=== PATIENT | female | born 1985 | race Caucasian/White ===

== ENCOUNTER 2018-08-26 11:25 | Emergency (ER) | payer OTHER ==
--- OUTSIDE RECORDS SUMMARY | 2018-08-26 11:30 | XMS REPORT | Continuity of Care Document ---
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 Body Temperature 98.3 F Weight 199.00 lb w/shoes 08/22/2016 1:52pm BP Systolic 110 mmHg BP Diastolic 60 mmHg Weight 207.00 lb with sneakers 07/21/2016 1:00pm BP Systolic 124 mmHg BP Diastolic 62 mmHg Weight 213.00 lb 06/04/2016 3:19pm BP Systolic 110 mmHg BP Diastolic 70 mmHg Weight 212.00 lb with sneakers 05/07/2016 8:59am BP Systolic 110 mmHg BP Diastolic 78 mmHg Weight 216.00 lb with sneakers 04/09/2016 11:27am BP Systolic 110 mmHg BP Diastolic 62 mmHg Height 68.25 inches 5'8.25" Weight 222.00 lb BMI (Body Mass Index) 33.5 kg/m2 03/12/2016 11:39am BP Systolic 110 mmHg BP Diastolic 60 mmHg Weight 216.00 lb 02/11/2016 1:32pm BP Systolic 120 mmHg BP Diastolic 60 mmHg Weight 224.00 lb 01/28/2016 4:23pm BP Systolic 128 mmHg BP Diastolic 76 mmHg 01/21/2016 4:45pm BP Systolic 142 mmHg BP Diastolic 70 mmHg Weight 244.00 lb 01/01/2016 2:06pm BP Systolic 122 mmHg BP Diastolic 80 mmHg Weight 237.00 lb 37 wks 12/07/2015 11:28am BP Systolic 126 mmHg BP Diastolic 70 mmHg Weight 233.00 lb 11/09/2015 9:35am BP Systolic 128 mmHg BP Diastolic 60 mmHg 10/12/2015 1:24pm BP Systolic 114 mmHg BP Diastolic 60 mmHg Height 68 inches 5'8" w/shoes Weight 214.00 lb w/shoes BMI (Body Mass Index) 32.5 kg/m2 09/25/2015 1:23pm BP Systolic 136 mmHg BP Diastolic 60 mmHg 08/28/2015 1:00pm BP Systolic 136 mmHg BP Diastolic 60 mmHg Weight 206.00 lb 07/30/2015 11:28am BP Systolic 112 mmHg BP Diastolic 60 mmHg Weight 206.00 lb with sneakers 07/16/2015 1:31pm BP Systolic 118 mmHg BP Diastolic 50 mmHg 06/18/2015 10:34am BP Systolic 120 mmHg BP Diastolic 72 mmHg Weight 199.00 lb 06/04/2015 1:40pm BP Systolic 120 mmHg BP Diastolic 70 mmHg 05/25/2015 10:38am BP Systolic 118 mmHg BP Diastolic 64 mmHg 05/18/2015 1:30pm BP Systolic 126 mmHg BP Diastolic 72 mmHg Weight 201.00 lb w/shoes 05/02/2015 1:11pm BP Systolic 122 mmHg BP Diastolic 58 mmHg 04/03/2015 4:08pm BP Systolic 102 mmHg BP Diastolic 62 mmHg Height 67.5 inches 5'7.50" with sneakers Weight 206.00 lb with sneakers BMI (Body Mass Index) 31.8 kg/m2 03/13/2015 1:09pm BP Systolic 120 mmHg BP Diastolic 65 mmHg Weight 200.00 lb 02/26/2015 9:38am BP Systolic 108 mmHg BP Diastolic 66 mmHg 02/21/2015 3:16pm BP Systolic 98 mmHg BP Diastolic 54 mmHg Body Temperature 97.9 F Weight 204.00 lb shoes on 01/29/2015 5:20pm BP Systolic 100 mmHg BP Diastolic 70 mmHg Body Temperature 97.7 F Weight 201.00 lb 01/02/2015 9:38am BP Systolic 106 mmHg BP Diastolic 64 mmHg Weight 206.00 lb 12/05/2014 10:20am Weight 206.00 lb shoes on 11/15/2014 3:59pm Body Temperature 97.9 F Weight 216.00 lb w/shoes 11/07/2014 12:21pm BP Systolic 114 mmHg BP Diastolic 72 mmHg Weight 214.00 lb w/shoes 10/10/2014 12:57pm BP Systolic 118 mmHg BP Diastolic 64 mmHg Height 67 inches 5'7" Weight 216.00 lb BMI (Body Mass Index) 33.8 kg/m2 09/12/2014 9:03am BP Systolic 116 mmHg BP Diastolic 60 mmHg Weight 212.00 lb 08/15/2014 9:40am BP Systolic 106 mmHg BP Diastolic 60 mmHg Weight 208.00 lb 07/18/2014 9:46am BP Systolic 110 mmHg BP Diastolic 68 mmHg Weight 206.00 lb 06/20/2014 1:59pm BP Systolic 100 mmHg BP Diastolic 64 mmHg Weight 198.00 lb 06/06/2014 2:47pm BP Systolic 108 mmHg BP Diastolic 64 mmHg 05/23/2014 1:02pm BP Systolic 114 mmHg BP Diastolic 58 mmHg Weight 193.00 lb 05/08/2014 9:51am BP Systolic 98 mmHg BP Diastolic 58 mmHg Weight 197.00 lb shoes on 04/24/2014 2:57pm BP Systolic 100 mmHg BP Diastolic 60 mmHg Weight 192.00 lb 04/17/2014 3:42pm BP Systolic 90 mmHg BP Diastolic 50 mmHg Heart Rate 76 /min reg Respiratory Rate 12 /min not laboured Height 67.75 inches 5'7.75" shoes on Weight 195.00 lb shoes on BMI (Body Mass Index) 29.9 kg/m2 Last Menstrual Period [id number] Results Test Date Facility Test Result H/L Range Note Urine Drug Screen Inhouse 06/26/2018 In House [facility] Cocaine + Ua Opiates - Ua Amphetamines - Urine Methanphetamines - Urine Benzodiazepines QN [place] - Urine Oxycodone QL - Laboratory test 05/14/2018 [facility]. Rapid Strep Negative Negative 1, 2 finding LABORATORY A Antigen [phone] Throat Strep Screen NO BETA STREPTOC <SEE NOTE> 3 Urine Drug Screen Inhouse 01/19/2018 In House Ua Cocaine - Ua Opiates - Ua Amphetamines - Urine Methanphetamines - Urine Benzodiazepines QN [place] - Urine Oxycodone QL - Urine Drug Screen Inhouse 09/04/2017 In House Ua Cocaine - Ua Opiates - Ua Amphetamines - Urine Methanphetamines - Urine Benzodiazepines QN [place] - Urine Oxycodone QL - Laboratory test 09/04/2017 [facility] Cytology SEE RESULT 4 finding [phone] BELOW GC/Chlamydia 09/04/2017 [facility] Chlamydia Negative Negative Amplified Rna [phone] trachomatis Rna Neisseria gonorrhoeae (GC) Rna Negative Negative Lipid Profile (Trig/Chol/HDL) 09/04/2017 [facility] Triglycerides 77 mg /dL 5 [phone] Cholesterol 177 mg/dL 6 HDL Cholesterol 44.0 mg/dL 7 LDL Cholesterol 118 mg/dL 8 Ua Inhouse 09/04/2017 In House Ua Specific Fisher 1.020 Ua PH 6.5 Laboratory test 07/14/2017 [facility] Stool For SEE RESULT 9, 10 finding [phone] Blood BELOW Helico Pylori Antigen- Stool Negative Negative 11 Laboratory test 07/08/2017 [facility] Amylase 43 U/L N 29-103 12 finding [phone] CBC Auto Diff 07/08/2017 [facility] White Blood 6.7 10^3/uL N 3.5- 10.8 [phone] Count Red Blood Count 4.38 10^6/uL N 4.0-5.4 Hemoglobin 12.6 g/dL N 12.0-16.0 Hematocrit 38 % N 35-47 Mean Corpuscular Volume 87 fL N 80-97 Mean Corpuscular Hemoglobin 29 pg N 27-31 Mean Corpuscular HGB Conc 33 g/dL N 31-36 Red Cell Distribution Width 14 % N 10.5-15 Platelet Count 232 10^3/uL N 150-450 Mean Platelet Volume 9 um3 N 7.4-10.4 Abs Neutrophils 3.2 10^3/uL N 1.5-7.7 Abs Lymphocytes 2.3 10^3/uL N 1.0-4.8 Abs Monocytes 0.7 10^3/uL N 0-0.8 Abs Eosinophils 0.4 10^3/uL N 0-0.6 Abs Basophils 0 10^3/uL N 0-0.2 Abs Nucleated RBC 0 10^3/uL Granulocyte % 47.9 % N 38-83 Lymphocyte % 34.8 % N 25-47 Monocyte % 11.2 % High 1-9 Eosinophil % 5.6 % N 0-6 Basophil % 0.5 % N 0-2 Nucleated Red Blood Cells % 0 Xray 07/08/2017 [facility] X-Ray, Lumbosacral <pending> Spine, Ap & Lat Minimum 4 Views Comp Metabolic 07/08/2017 [facility] Sodium 134 mmol/L N 133-145 Panel [phone] Potassium 4.2 mmol/L N 3.5-5.0 Chloride 106 mmol/L N 101-111 Co2 Carbon Dioxide 24 mmol/L N 22-32 Anion Gap 4 mmol/L N 2-11 Glucose 94 mg/dL N 70-100 Blood Urea Nitrogen 18 mg/dL N 6-24 Creatinine 0.63 mg/dL N 0.51-0.95 BUN/Creatinine Ratio 28.6 High 8-20 Calcium 9.2 mg/dL N 8.6-10.3 Total Protein 6.8 g/dL N 6.4-8.9 Albumin 4.1 g/dL N 3.2-5.2 Globulin 2.7 g/dL N 2-4 Albumin/Globulin Ratio 1.5 N 1-3 Total Bilirubin 0.20 mg/dL N 0.2-1.0 Alkaline Phosphatase 62 U/L N 34-104 Alt 13 U/L N 7-52 Ast 14 U/L N 13-39 Egfr Non- 110.2 >60 Egfr 141.7 >60 13 Laboratory test 07/08/2017 [facility] Lipase 20 U/L N 11.0-82.0 finding [phone] Laboratory test 07/07/2017 In House Hemoglobin A1c 5.3 finding Ua Inhouse 07/07/2017 In House Ua Glucose - 14 Ua Bilirubin mod Ua Ketones - Ua Specific Fisher 1.015 Ua Blood - Ua PH 6.0 Ua Protein - Ua Urobilinogen - Ua Nitrite - Ua Leukocytes - Urine Drug Screen Inhouse 07/03/2017 In House Ua Cocaine - Ua Opiates - Ua Amphetamines - Urine Methanphetamines - Urine Benzodiazepines QN [place] - Urine Oxycodone QL - Urine Drug Screen Inhouse 06/17/2017 In House Ua Cocaine - Ua Opiates - Ua Amphetamines - Urine Methanphetamines - Urine Benzodiazepines QN [place] - Urine Oxycodone QL - Urine Drug Screen Inhouse 06/11/2017 In House Ua Cocaine - Ua Opiates - Ua Amphetamines - Urine Methanphetamines - Urine Benzodiazepines QN [place] - Urine Oxycodone QL - Urine Drug Screen Inhouse 06/03/2017 In House Ua Cocaine - Ua Opiates - Ua Amphetamines - Urine Methanphetamines - Urine Benzodiazepines QN [place] - Urine Oxycodone QL - Urine Drug Screen Inhouse 05/11/2017 In House Ua Cocaine - Ua Opiates - Ua Amphetamines - Urine Methanphetamines - Urine Benzodiazepines QN [place] - Urine Oxycodone QL - Urine Drug Screen Inhouse 04/22/2017 In House Ua Cocaine - Ua Opiates - Ua Amphetamines - Urine Methanphetamines - Urine Benzodiazepines QN [place] - Urine Oxycodone QL - Urine Drug Screen Inhouse 03/24/2017 In House Ua Cocaine - Ua Opiates - Ua Amphetamines - Urine Methanphetamines - Urine Benzodiazepines QN [place] - Urine Oxycodone QL - Urine Drug Screen Inhouse 12/15/2016 In House Ua Cocaine - Ua Opiates - Ua Amphetamines - Urine Methanphetamines - Urine Benzodiazepines QN [place] - Urine Oxycodone QL - Laboratory test 10/15/2016 [facility] Lyme Disease Negative N Negative 15 finding [phone] Serology Urine Drug Screen 09/30/2016 In House Ua Cocaine - Inhouse Ua Opiates - Ua Amphetamines - Urine Methanphetamines - Urine Benzodiazepines QN [place] - Urine Oxycodone QL - Urine Drug Screen Inhouse 09/19/2016 In House Ua Cocaine - Ua Opiates - Ua Amphetamines - Urine Methanphetamines - Urine Benzodiazepines QN [place] - Urine Oxycodone QL - Laboratory test 02/03/2016 [facility] Rupture of Positive N 16 finding [phone] Membranes Urine Drug SCR 02/01/2016 [facility] Amphetamine Ur None Detected N None ED & Pain [phone] Screen Detect Clinic Barbiturates Urine Screen None Detected N None Detect Benzodiazepine Urine Screen None Detected N None Detect Urine Cannabinoids Screen None Detected N None Detect Urine Cocaine Screen None Detected N None Detect Urine Opiates Screen None Detected N None Detect Urine Phencyclidine Screen None Detected N None Detect 17 Urine Drug Screen Inhouse 10/12/2015 In House Ua Cocaine - Ua Opiates - Ua Amphetamines - Urine Methanphetamines - Urine Benzodiazepines QN [place] - Urine Oxycodone QL - Laboratory test 02/12/2015 [facility] Surgical Pathology SEE RESULT 18 finding [phone] BELOW Laboratory test 02/12/2015 [facility] Clotest SEE RESULT 19 finding [phone] BELOW Urine Drug Screen 12/05/2014 In House Ua Cocaine - Inhouse Ua Opiates - Ua Amphetamines - Urine Methanphetamines - Urine Benzodiazepines QN [place] - Urine Oxycodone QL - Urine Drug Screen Inhouse 11/07/2014 In House Ua Cocaine - Ua Opiates - Ua Amphetamines - Urine Methanphetamines - Urine Benzodiazepines QN [place] - Urine Oxycodone QL - Laboratory test finding 09/12/2014 In House Test Urine negative Urine Drug Screen Inhouse 09/12/2014 In House Ua Cocaine - Ua Opiates - Ua Amphetamines - Urine Methanphetamines - Urine Benzodiazepines QN [place] - Urine Oxycodone QL - Urine Drug Screen Inhouse 06/06/2014 In House Urine THC Screen tnp Ua Cocaine - Ua Opiates - Ua Amphetamines - Urine Methanephrine Random tnp Urine Phenyclidine GC/MS tnp Urine Mdma QN Random tnp Ua Barbiturates tnp Urine Benzodiazepines QN [place] - Ua Methadone tnp Urine Tricyclc Antidepress RND tnp Urine Oxycodone QL - Urine Drug Screen Inhouse 05/08/2014 In House Urine THC Screen + Ua Cocaine - Ua Opiates - Ua Amphetamines - Urine Methanephrine Random - Urine Phenyclidine GC/MS - Urine Mdma QN Random - Ua Barbiturates - Urine Benzodiazepines QN [place] - Ua Methadone - Urine Tricyclc Antidepress RND - Urine Oxycodone QL - Vitamin D, 25 04/24/2014 [facility] 25-Hydroxy Vitamin D2 <4.0 ng/mL N Hydroxy [phone] 25-Hydroxy Vitamin D3 48 ng/mL N 25-Hydroxy Vitamin D Total 48 ng/mL N 20 Urine Drug Screen Inhouse 04/17/2014 In House Urine THC Screen + Ua Cocaine - Ua Opiates - Ua Amphetamines - Urine Methanephrine Random - Urine Phenyclidine GC/MS - Urine Mdma QN Random - Ua Barbiturates - Urine Benzodiazepines QN [place] - Ua Methadone - Urine Tricyclc Antidepress RND - Urine Oxycodone QL - Human Papilloma 06/09/2013 [facility] Human Papillomavirus See Comment 21 [phone] Source Human Papillomavirus High Risk Negative Negative 22 Cytology 06/07/2013 [facility] Cy RUN DATE: 23 [phone] SEE NOTE> GC/Chlamydia 06/07/2013 [facility] GC/Chlamydia (SEE NOTE) 24 Amplified Rna [phone] Rna GC/Chlamydia 05/18/2013 [facility] GC/Chlamydia (SEE NOTE) 25 Amplified Rna [phone] Rna CBC Auto Diff 04/13/2013 [facility] White Blood 5.9 10^3/uL 4.8- 10.8 [phone] Count Red Blood Count 3.81 10^6/uL Low 4.0-5.4 Hemoglobin 10.6 g/dL Low 12.0-16.0 Hematocrit 33 % Low 35-47 Mean Corpuscular Volume 87 fL 80-97 Mean Corpuscular Hemoglobin 28 pg 27-31 Mean Corpuscular HGB Conc 32 g/dL 31-36 Red Cell Distribution Width 15 % 10.5-15 Platelet Count 267 10^3/uL 150-450 Mean Platelet Volume 8 um3 7.4-10.4 Abs Neutrophils 3.2 10^3/uL 1.5-7.7 Abs Lymphocytes 1.8 10^3/uL 1.0-4.8 Abs Monocytes 0.7 10^3/uL 0-0.8 Abs Eosinophils 0.2 10^3/uL 0-0.6 Abs Basophils 0 10^3/uL 0-0.2 Abs Nucleated RBC 0 10^3/uL Granulocyte % 53.4 % 38-83 Lymphocyte % 30.4 % 25-47 Monocyte % 12.6 % High 1-9 Eosinophil % 3.3 % 0-6 Basophil % 0.3 % 0-2 Nucleated Red Blood Cells % 0 Iron & Iron Binding Capacity 04/13/2013 [facility] Iron 98 g/dL 28 -170 [phone] Unsaturated Iron Binding 149 g/dL Total Iron Binding Capacity 247 g/dL Low 250-450 % Iron Saturation 40 % 15-55 Laboratory test 04/13/2013 [facility] Ferritin 19 ng/mL 11-307 finding [phone] RPR 04/13/2013 [facility] Syphilis IgG Nonreactive Nonreactive 26 [phone] RPR TNP Nonreactive RPR Titer TNP Pediatric/Maternal NO HIV 1/2 AB 04/13/2013 [facility] HIV 1 2 Nonreactive Nonreactive 27 Evaluation [phone] Antibody CBC Auto Diff 03/16/2013 [facility] White Blood 5.5 10^3/uL 4.8- 10.8 [phone] Count Red Blood Count 3.79 10^6/uL Low 4.0-5.4 Hemoglobin 10.6 g/dL Low 12.0-16.0 Hematocrit 33 % Low 35-47 Mean Corpuscular Volume 87 fL 80-97 Mean Corpuscular Hemoglobin 28 pg 27-31 Mean Corpuscular HGB Conc 32 g/dL 31-36 Red Cell Distribution Width 15 % 10.5-15 Platelet Count 225 10^3/uL 150-450 Mean Platelet Volume 8 um3 7.4-10.4 Abs Neutrophils 3.4 10^3/uL 1.5-7.7 Abs Lymphocytes 1.2 10^3/uL 1.0-4.8 Abs Monocytes 0.8 10^3/uL 0-0.8 Abs Eosinophils 0.1 10^3/uL 0-0.6 Abs Basophils 0 10^3/uL 0-0.2 Abs Nucleated RBC 0 10^3/uL Granulocyte % 61.4 % 38-83 Lymphocyte % 22.0 % Low 25-47 Monocyte % 14.0 % High 1-9 Eosinophil % 2.2 % 0-6 Basophil % 0.4 % 0-2 Nucleated Red Blood Cells % 0 Urinalysis 03/16/2013 [facility] Urine Color Corazon [phone] Urine Appearance Clear Urine Specific Fisher 1.017 1.010-1.030 Urine Esterase Negative Negative Urine Nitrate Negative Negative Urine Urobilinogen Negative E.U./dL Negative Urine Protein Negative mg/dL Negative Urine pH 5.5 5-9 Urine Blood Negative Negative Urine Ketones Negative mg/dL Negative Urine Bilirubin Negative Negative Urine Glucose Negative mg/dL Negative Laboratory test 03/16/2013 [facility] Hepatitis B Nonreactive Nonreactive finding [phone] Surface Antigen Hepatitis C Antibody Nonreactive Nonreactive Comp Metabolic Panel 03/16/2013 [facility] Sodium 141 mmol/L 133- 145 [phone] Potassium 3.8 mmol/L 3.5-5.0 Chloride 109 mmol/L 101-111 Co2 Carbon Dioxide 26.0 mmol/L 22-32 Anion Gap 6.0 mmol/L 2-11 Glucose 94 mg/dL 70-100 Blood Urea Nitrogen 10 mg/dL 6-24 Creatinine 0.80 mg/dL 0.50-1.40 BUN/Creatinine Ratio 12.5 8-20 Calcium 8.9 mg/dL 8.1-9.9 Total Protein 6.8 g/dL 6.2-8.1 Albumin 3.5 g/dL Low 3.6-5.4 Globulin 3.3 g/dL 2-4 Albumin/Globulin Ratio 1.1 1-3 Total Bilirubin 0.3 mg/dL Low 0.4-1.5 Alkaline Phosphatase 60 U/L 30-110 Alt 35 U/L 14-54 Ast 36 U/L 12-42 Egfr Non- 86.7 >60 Egfr 111.5 >60 28 Laboratory test 03/16/2013 [facility] TSH (Thyroid 2.27 miu/mL 0.34- 5.60 finding [phone] Stimulating Horm) Quantiferon Gold 03/16/2013 [facility] M tuberculosis by Negative TB [phone] Quantiferon Tuberculosis Antigen Value 0.33 IU/mL 29 1 COUGH, SORE THROAT 2 Infection due to Strep A cannot be ruled-out because the antigen present in the sample may be below the detection limit of the test. Culture confirmation of negative result is in progress Method: BD Veritor Chromatographic immunoassay 3 NO BETA STREPTOCOCCI ISOLATED 4 SEE RESULT BELOW Name: JOVITA DANIELS : [address]: Bailey HOUSTON Acct: [id number] Unit: [id number] AGE: 32 Location: [facility] Re09/04/17 SEX: F Status: REG REF SPEC: [id number] NICHOLE: 09/04/17-1230 [facility] [address]: Bailey HOUSTON REQ: [id number] RECD: 09/04/17 STATUS: SOUT _ ORDERED: TP IMAGE ANAL, HPV/Thin Prep COMMENTS: [id number] Negative for Intraepithelial lesion or Malignancy A. Ectocervical/Endocervical Specimen Adequacy: Satisfactory of evaluation Transformation zone component identified Patient Information: HPV: High risk HPV RNA testing regardless of pap results. Actual Specimen Date: 09/04/17 Last Menstrual Date: 08/21/17 ?: N Post Menopausal?: N Hysterectomy?: N Date Time Test Result Flag (u) Normal Range 09/04/17 1230 @ HPV RNA Negative Negative @ @ The high-risk HPV types detected by the assay include: 16, @ 18, 31, 33, 35, 39, 45, 51, 52, 56, 58, 59, 66, and 68. Signed (signature on file) ROSALIA Castro([facility]) 09/07 1552 This Pap test was evaluated with the assistance of the [facility] Shift[employer] Test Imaging System. Due to cytologic findings at the labor relations consultant microscope, comprehensive manual rescreening by a Fishing Lure Assembler may be required. The Pap Smear is a screening test designed to aid in the detection of premalignant and malignant conditions of the uterine cervix. It is not a diagnostic procedure and should not be used as the sole means of detecting cervical cancer. Both false- positive and false- negative reports do occur. Depending on your risk status, a Pap smear should be obtained and evaluated every 1-3 years. END OF REPORT DEPARTMENT OF PATHOLOGY, [address] [place] [address] Stuart Taylor M.D. Director [facility] # [id number] 5 Desirable: <150 Borderline High: 150-199 High: 200-499 Very High: >500 6 Desirable: <200 Borderline High: 200-239 High: >239 7 Low: <40 Desirable: 40-60 High: >60 8 Desirable: <100 Near Optimal: 100-129 Borderline High: 130-159 High: 160-189 Very High: >189 9 [id number] 10 SEE RESULT BELOW Name: JOVITA DANIELS : [address]: Bailey HOUSTON Acct: [id number] Unit: [id number] AGE: 32 Location: [facility] Re07/14/17 SEX: F Status: REG REF SPEC: [id number] NICHOLE: 07/14/17-[address]: Bailey HOUSTON REQ: [id number] RECD: 07/14/17 STATUS: COMP _ SOURCE: STOOL SPDESC: ORDERED: Occult Bl, Diag, Fecal Lactoferr COMMENTS: [id number] Procedure Result Reported Site Stool Specimen Description Final 07/14/17- 2047 ML Stool Color Brown Stool Form Nonformed Stool Consistency Pasty Fecal Lactoferrin (Stool WBC) Final 07/14/17- 2047 ML Fecal Lactoferrin Negative by Immunoassay TEST LIMITATIONS: Assay detects elevated levels of lactoferrin released from fecal leukocytes as a marker of intestinal inflammation. The test may not be appropriate in immunocompromised persons. Fecal samples from breast fed infants should not be used with this assay. Stool Occult Blood (1) Final 07/14/17- 2047 ML Stool Occult Blood Negative Collection Date (1) 07/14/17 * ML - [facility] ([facility]) . END OF REPORT * ML=Testing performed at Main Lab DEPARTMENT OF PATHOLOGY, [address] [place] [address] Stuart Taylor M.D. Director [facility] # [id number] 11 Test Performed by: [address] [id number] 12 Per [facility] lab site, no stool testing was done on pt. SL 13 Because ethnic data is not always readily available, this report includes an eGFR for both -Americans and non- Americans. The National Kidney Disease Education Program (NKDEP) does not endorse the use of the MDRD equation for patients that are not between the ages of 18 and 70, are , have extremes of body size, muscle mass, or nutritional status, or are non- or non-. According to the National Kidney Foundation, irrespective of diagnosis, the stage of the disease is based on the level of kidney function: Stage Description GFR(mL/min/1.73 m(2)) 1 Kidney damage with normal or decreased GFR 90 2 Kidney damage with mild decrease in GFR 60-89 3 Moderate decrease in GFR 30-59 4 Severe decrease in GFR 15-29 5 Kidney failure <15 (or dialysis) 14 void, yellow 15 Serologic response to B. burgdorferi infection is not detected, but cannot rule out early infection during which low or undetectable antibody levels to B. burgdorferi may be present. If clinically indicated, a new serum specimen should be submitted in 7-14 days. Test Performed by: [facility] - [address] [address] 16 A POSITIVE result indicates probable membrane rupture. 17 The urine specimen was tested at the listed cutoffs: Drug class test level (ng/mL) Amphetamines 500 Barbiturates 200 Benzodiazepine metabolites 200 Cocaine metabolites 150 Cannabinoids 50 Opiates 300 Pcp 25 Specimen was received without chain of custody. Results should be used for medical purposes only. 18 SEE RESULT BELOW Name: TRESA DANIELSJOVITA Casi : [address]: Martin Burgos MD Acct: [id number] Unit: [id number] AGE: 29 Location: ENDO Re/10/15 SEX: F Status: REG REF SPEC: [id number] NICHOLE: 02/12/15 [facility] [address]: Martin Burgos MD REQ: [id number] RECD: 02/12/15 STATUS: ANDREI ARREGUIN DR: Wilmer Martinez MD _ ORDERED: LEVEL IV FINAL DIAGNOSIS Small bowel, duodenum, biopsy: -- Small bowel mucosa with normal villous architecture and no significant pathologic abnormality. -- No infectious agents or viral pathologic changes identified. CLINICAL HISTORY No additional information provided POST-OPERATIVE DIAGNOSIS Esophagus - normal; stomach - normal, biopsied; duodenum - normal, biopsied GROSS DESCRIPTION The specimen is received in formalin labeled, Duodenum Biopsies, and consists of a 1.0 x 0.2 x 0.1 cm bryant-pink irregular soft tissue fragment, which is submitted entirely in one cassette. Signed (signature on file) Stuart Taylor MD [id number] END OF REPORT * ML=Testing performed at Main Lab DEPARTMENT OF PATHOLOGY, [address] [place] [address] Stuart Taylor M.D. Director [facility] # [id number] 19 SEE RESULT BELOW Name: JOVITA DANIELS : [address]: Martin Burgos MD Acct: [id number] Unit: [id number] AGE: 29 Location: ENDO Re02/12/15 SEX: F Status: REG REF SPEC: [id number] NICHOLE: 02/12/15-112[address] [facility] [address]: Martin Burgos MD REQ: [id number] RECD: 02/12/15 STATUS: COMP VERONICAHR DR: Wilmer Martinez MD _ SOURCE: GAS ANTRUM SPDESC: ORDERED: Clotest Procedure Result Verified Site Clotest Final 02/13/15- 732 ML Clotest Negative * ML - [facility] ([facility]) . END OF REPORT * ML=Testing performed at Main Lab DEPARTMENT OF PATHOLOGY, [facility] [place], [place] [address] Stuart Taylor M.D. Director [facility] # [id number] 20 REFERENCE VALUE 25-HYDROXY D TOTAL (D2+D3) Optimum levels in the healthy population are 20-50, patients with bone disease may benefit from higher levels within this range. Test Performed by: [facility] [place] [address] Aerial Applicator Pilot: Thai Miranda M.D. 21 RESULT: Ectocervical/Endocervical 22 For types 16, 18, 31, 33, 35, 39, 45, 51, 52, 56, 58, 59 and 68. Test Performed by: [facility] [place] [address] Aerial Applicator Pilot: Cirilo Carbajal III, M.D. 23 RUN DATE: 06/09/13 [facility] LAB LIVE PAGE 1 RUN TIME: 9576 [facility] [facility] [place], [place] [address] Specimen Inquiry Name: JOVITA DANIELS : [address]: Bailey HOUSTON Acct: [id number] Unit: [id number] AGE: 28 Location: [facility] Re06/07/13 SEX: F Status: REG REF SPEC: [id number] NICHOLE: 06/07/13-[address]: Bailey HOUSTON REQ: [id number] RECD: 06/08/13-1699 STATUS: ANDREI ARREGUIN DR: Yahaira López-Tbrg _ ORDERED: IMAGE ANALYSIS, HPV/Thin Prep FINAL DIAGNOSIS Negative for Intraepithelial lesion or Malignancy Shift in davina suggestive of bacterial vaginosis COMMENTS: Specimen sent to [facility] in [place], [place] on 06/09/13 by ANIKA at 1507. Results will be reported separately. A. Ectocervical/Endocervical Specimen Adequacy: Satisfactory of evaluation Transformation zone component identified Patient Information: HPV: High risk HPV DNA testing regardless of pap results. Actual Specimen Date: 06/07/13 Other Pertinent History: No History Given Signed (signature on file) ROSALIA Mendoza (ASCP) 06/09 1507 This Pap test was evaluated with the assistance of the ThinPrep Test Imaging System. Due to cytologic findings at the labor relations consultant microscope, comprehensive manual rescreening by a Fishing Lure Assembler may be required. The Pap Smear is a screening test designed to aid in the detection of premalignant and malignant conditions of the uterine cervix. It is not a diagnostic procedure and should not be used as the sole means of detecting cervical cancer. Both false- positive and false- negative reports do occur. Depending on your risk status, a Pap smear shoudl be obtained and evaluated every 1-3 years. END OF REPORT * ML=Testing performed at Main Lab DEPARTMENT OF PATHOLOGY, [facility] [place], [place] [address] Stuart Taylor M.D. Director [facility] Permit #[id number] RUN DATE: 06/10/13 [facility] LAB LIVE PAGE 1 RUN TIME: 1241 [facility] [place], [place] [address] Specimen Inquiry Name: JOVITA DANIELS : [address]: Bailey HOUSTON Acct: [id number] Unit: [id number] AGE: 28 Location: [facility] Re06/07/13 SEX: F Status: REG REF SPEC: [id number] NICHOLE: 06/07/13 [facility] DR: Bailey HOUSTON REQ: [id number] RECD: 06/08/13 STATUS: FAVIO ARREGUIN DR: Troup Adrian [facility] _ SOURCE: THIN SPDESC: ORDERED: GC/Chlam RNA COMMENTS: Procedure Result Verified Site Chlamydia Trachomatis RNA Final 06/10/13- 1240 ML NEGATIVE for Chlamydia trachomatis rRNA GC (N. gonorrhoeae) RNA Final 06/10/13- 1240 ML NEGATIVE for Neisseria gonorrhoeae rRNA A negative result does not preclude the presence of a C. trachomatis or N. gonorrhoeae infection because results are dependent on adequate specimen collection, absence of inhibitors, and sufficient rRNA to be detected. Test results may be affected by improper specimen collection, improper storage, technical error, or specimen mixup. Limitations of the Procedure: The Aptima Combo 2 Assay is not intended for the evaluation of suspected sexual abuse or for other medico-legal indications. For those patients for whom a false positive result may have adverse psychosocial impact, the CDC recommends retesting by a method using an alternate technology. Therapeutic failure or success cannot be determined with the Aptima Combo 2 Assay since nucleic acid may persist following appropriate antimicrobial therapy. Results from the Aptima Combo 2 Assay should be interpreted in conjunction with other laboratory and clinical data available to the clinican. CONTINUED ON NEXT PAGE * ML=Testing performed at [facility] Lab DEPARTMENT OF PATHOLOGY, [address] [place] [address] Stuart Taylor M.D. Director [facility] Permit #[id number] RUN DATE: 06/10/13 [facility] LAB LIVE PAGE 2 RUN TIME: [address] [place] [id number] Specimen Inquiry Patient: JOVITA DANIELS [id number] (Continued) Specimen: [id number] Collected: 06/07/13 Received: 06/08/13-1214 (Continued) Procedure Result Verified Site GC (N. gonorrhoeae) RNA Final (continued) 06/10/13- 1240 Performance characteristics for detecting C. trachomatis and N. gonorrhoeae are derived from high prevalence populations. Positive results in low prevalence populations should be interpreted carefully with the understanding that the likelihood of a false positive may be higher than a true positive. END OF REPORT * ML=Testing performed at Main Lab DEPARTMENT OF PATHOLOGY, [facility] [place], [place] [address] Stuart Taylor M.D. Director [facility] Permit #[id number] RUN DATE: 05/20/13 [facility] LAB LIVE PAGE 1 RUN TIME: 1335 [facility] [place], [place] [address] Specimen Inquiry Name: JOVITA DANIELS : [address]: Bailey HOUSTON Acct: [id number] Unit: [id number] AGE: 28 Location: [facility] Re05/18/13 SEX: F Status: REG REF SPEC: [id number] NICHOLE: 05/18/13-110[address] [facility] [address]: Bailey HOUSTON REQ: [id number] RECD: 05/18/13 STATUS: FAVIO ARREGUIN DR: Y[facility] _ SOURCE: URINE SPDESC: ORDERED: GC/Chlam RNA Procedure Result Verified Site Chlamydia Trachomatis RNA Final 05/20/13- 1334 ML NEGATIVE for Chlamydia trachomatis rRNA GC (N. gonorrhoeae) RNA Final 05/20/13- 1334 ML NEGATIVE for Neisseria gonorrhoeae rRNA A negative result does not preclude the presence of a C. trachomatis or N. gonorrhoeae infection because results are dependent on adequate specimen collection, absence of inhibitors, and sufficient rRNA to be detected. Test results may be affected by improper specimen collection, improper storage, technical error, or specimen mixup. Limitations of the Procedure: The Aptima Combo 2 Assay is not intended for the evaluation of suspected sexual abuse or for other medico-legal indications. For those patients for whom a false positive result may have adverse psychosocial impact, the [facility] recommends retesting by a method using an alternate technology. Therapeutic failure or success cannot be determined with the Aptima Combo 2 Assay since nucleic acid may persist following appropriate antimicrobial therapy. Results from the Aptima Combo 2 Assay should be interpreted in conjunction with other laboratory and clinical data available to the clinican. Performance characteristics for detecting C. trachomatis and CONTINUED ON NEXT PAGE * ML=Testing performed at Main Lab DEPARTMENT OF PATHOLOGY, [facility] [place] [address] Stuart Taylor M.D. Director [facility] Permit #[id number] RUN DATE: 05/20/13 [facility] LAB LIVE PAGE 2 RUN TIME: 1335 [facility] [place], [place] [address] Specimen Inquiry Patient: JOVITA DANIELS Casi [id number] (Continued) Specimen: [id number] Collected: 05/18/13-1104 Received: 05/18/13-1241 (Continued) Procedure Result Verified Site GC (N. gonorrhoeae) RNA Final (continued) 05/20/13- 1334 N. gonorrhoeae are derived from high prevalence populations. Positive results in low prevalence populations should be interpreted carefully with the understanding that the likelihood of a false positive may be higher than a true positive. END OF REPORT * ML=Testing performed at Main Lab DEPARTMENT OF PATHOLOGY, [address] [place] [address] Stuart Taylor M.D. Director [facility] Permit #[id number] Warning: A positive result is not useful for establishing a diagnosis of syphilis. In most situations, such a result may reflect a prior treated infection; a negative result can exclude a diagnosis of syphilis except for incubating or early primary disease. 27 It is recognized that currently available assays for the detection of antibodies to HIV-1 and/or HIV-2 may not detect all infected individuals. HIV antibodies may be undetectable in some stages of the infection and in some clinical conditions. The performance of this assay has not been established for populations of infants or children. Assayed by Chemiluminescence Microparticle Immunoassay on the Siemens Advia Centaur CP. Values obtained with different methods or kits cannot be used interchangeably.The diagnostic specificity of the ADVIA Centaur 1/O/2 Enhanced assay in the low risk population was 99.90% (6052/6058) with a 95% confidence interval of 99.78 to 99.96%. 28 Because ethnic data is not always readily available, this report includes an eGFR for both -Americans and non- Americans. The National Kidney Disease Education Program (NKDEP) does not endorse the use of the MDRD equation for patients that are not between the ages of 18 and 70, are , have extremes of body size, muscle mass, or nutritional status, or are non- or non-. According to the National Kidney Foundation, irrespective of diagnosis, the stage of the disease is based on the level of kidney function: Stage Description GFR(mL/min/1.73 m(2)) 1 Kidney damage with normal or decreased GFR 90 2 Kidney damage with mild decrease in GFR 60-89 3 Moderate decrease in GFR 30-59 4 Severe decrease in GFR 15-29 5 Kidney failure <15 (or dialysis) 29 This is a qualitative test. The TB antigen IU/mL value is required for documentation on certain government reporting forms (e.g., Form I-693), but this value should not be used to monitor disease progression or response to therapy. Diagnosing or excluding tuberculosis disease, and assessing the probability of LTBI, require a combination of epidemiological, historical, medical, and diagnostic findings that should be taken into account when interpreting QuantiFERON-TB results. Test Performed by: [place] [address] Aerial Applicator Pilot: Cirilo Carbajal III, M.D. Procedures Date Code Description Status 12/14/2017 94719 Electrocardiogram Complete Completed 09/21/2017 13749 SC/Im Injections Completed 08/12/2017 54380 Brief Emotional/Behav Assessment W/ Scoring Doc Per Completed Standard Inst 07/08/2017 40214 X-Ray, Lumbar Spine Complete, Obl Completed 05/08/2014 18190 X-Ray Ankle Three Views Completed Encounters Type Date Location Provider Dx Diagnosis Office Visit 08/25/2018 Main Office Wilmer Martinez F11.20 Opioid dependence, 2:45p M.DMariah uncomplicated F34.1 Dysthymic disorder F41.1 Generalized anxiety disorder F90.0 Attn-defct hyperactivity disorder, predom inattentive type Z71.51 Drug abuse counseling and surveillance of drug abuser Office Visit 07/23/2018 8:55a Main Office Leoncio Martinez Opioid dependence, Dulce Guillen uncomplicated F34.1 Dysthymic disorder F41.1 Generalized anxiety disorder F90.0 Attn-defct hyperactivity disorder, predom inattentive type Office Visit 06/26/2018 9:00a Main Office Michelle F11.20 Opioid dependence, Dulce Guillen uncomplicated F34.1 Dysthymic disorder F41.1 Generalized anxiety disorder F90.0 Attn-defct hyperactivity disorder, predom inattentive type Office Visit 06/07/2018 11:40a Main Office Bailey Johns, J20.9 Acute bronchitis, P.A. unspecified R05 Cough Office Visit 05/25/2018 9:45a Main Office Michelle F11.20 Opioid dependence, Dulce Guillen uncomplicated F34.1 Dysthymic disorder F41.1 Generalized anxiety disorder Z71.51 Drug abuse counseling and surveillance of drug abuser F90.0 Attn-defct hyperactivity disorder, predom inattentive type Office Visit 04/26/2018 10:15a Main Office Michelle F11.20 Opioid dependence, Dulce Guillen uncomplicated F90.0 Attn-defct hyperactivity disorder, predom inattentive type F41.1 Generalized anxiety disorder F34.1 Dysthymic disorder Z71.51 Drug abuse counseling and surveillance of drug abuser Office Visit 03/26/2018 1:30p Main Office Michelle F11.20 Opioid dependenceWilmer M.D. uncomplicated F90.0 Attn-defct hyperactivity disorder, predom inattentive type Z71.51 Drug abuse counseling and surveillance of drug abuser Z23 Encounter for immunization Office Visit 02/17/2018 10:30a Main Office Michelle F11.20 Opioid dependenceWilmer M.D. uncomplicated R63.5 Abnormal weight gain Z79.3 half-way (current) use of hormonal contraceptives F90.0 Attn-defct hyperactivity disorder, predom inattentive type F41.1 Generalized anxiety disorder F34.1 Dysthymic disorder Office Visit 01/19/2018 8:30a Main Office Michelle F11.20 Opioid dependenceWilmer M.D. uncomplicated Z71.51 Drug abuse counseling and surveillance of drug abuser F90.0 Attn-defct hyperactivity disorder, predom inattentive type F41.1 Generalized anxiety disorder R11.2 Nausea with vomiting, unspecified Office Visit 12/14/2017 4:00p Main Office Bailey Johns, R09.89 Oth symptoms and P.A. signs involving the circ and resp systems J01.90 Acute sinusitis, unspecified R05 Cough R00.0 Tachycardia, unspecified Office Visit 12/02/2017 11:30a Main Office Michelle F11.20 Opioid dependence, Dulce Guillen uncomplicated Z71.51 Drug abuse counseling and surveillance of drug abuser K08.9 Disorder of teeth and supporting structures, unspecified F90.0 Attn-defct hyperactivity disorder, predom inattentive type F41.1 Generalized anxiety disorder R11.2 Nausea with vomiting, unspecified Z71.3 Dietary counseling and surveillance Office Visit 10/30/2017 1:15p Main Office Michelle F11.20 Opioid dependenceWilmer M.D. uncomplicated Z71.51 Drug abuse counseling and surveillance of drug abuser K08.9 Disorder of teeth and supporting structures, unspecified F41.1 Generalized anxiety disorder F90.0 Attn-defct hyperactivity disorder, predom inattentive type Office Visit 09/25/2017 11:30a Main Office Michelle F11.20 Opioid dependenceWilmer M.D. uncomplicated Z71.51 Drug abuse counseling and surveillance of drug abuser R10.13 Epigastric pain R11.2 Nausea with vomiting, unspecified K08.9 Disorder of teeth and supporting structures, unspecified F41.1 Generalized anxiety disorder G56.02 Carpal tunnel syndrome, left upper limb Office Visit 09/07/2017 9:30a Main Office Michelle F11.20 Opioid dependenceWilmer M.D. uncomplicated Z71.51 Drug abuse counseling and surveillance of drug abuser R10.13 Epigastric pain R11.2 Nausea with vomiting, unspecified K08.9 Disorder of teeth and supporting structures, unspecified F41.1 Generalized anxiety disorder F34.1 Dysthymic disorder G56.02 Carpal tunnel syndrome, left upper limb Office Visit 09/04/2017 9:00a Main Office Bailey Johns, Z00.01 Encounter for P.A. general adult medical exam w abnormal findings Z12.39 Encounter for oth screening for malignant neoplasm of breast Z12.4 Encounter for screening for malignant neoplasm of cervix F11.20 Opioid dependence, uncomplicated Z13.220 Encounter for screening for lipoid disorders Z41.8 Encntr for oth proc for purpose oth [facility] K08.9 Disorder of teeth and supporting structures, unspecified F17.210 Nicotine dependence, cigarettes, uncomplicated Office Visit 08/25/2017 9:45a Main Office Wilmer Martinez, K08.9 Disorder of teeth M.D. and supporting structures, unspecified F11.20 Opioid dependence, uncomplicated Office Visit 08/12/2017 9:15a Main Office Daylin Martinez1.20 Opioid dependence, Dulce Guillen uncomplicated Z71.51 Drug abuse counseling and surveillance of drug abuser R11.2 Nausea with vomiting, unspecified R10.13 Epigastric pain Z13.89 Encounter for screening for other disorder A08.4 Viral intestinal infection, unspecified Office Visit 07/15/2017 11:45a Main Office Michelle F11.20 Opioid dependenceWilmer M.D. uncomplicated Z71.51 Drug abuse counseling and surveillance of drug abuser F41.1 Generalized anxiety disorder F34.1 Dysthymic disorder F90.0 Attn-defct hyperactivity disorder, predom inattentive type R11.2 Nausea with vomiting, unspecified R10.13 Epigastric pain Office Visit 07/08/2017 11:20a Main Office Venita Barbour PA M54.5 Low back pain R10.13 Epigastric pain R11.2 Nausea with vomiting, unspecified Office Visit 07/07/2017 11:20a Main Office Bailey Johns, R11.2 Nausea with P.A. vomiting, unspecified R10.13 Epigastric pain R19.7 Diarrhea, unspecified R53.83 Other fatigue M54.5 Low back pain K62.5 Hemorrhage of anus and rectum Office Visit 06/17/2017 11:00a Main Office Michelle F11.20 Opioid dependenceWilmer M.D. uncomplicated Z71.51 Drug abuse counseling and surveillance of drug abuser R11.2 Nausea with vomiting, unspecified F41.1 Generalized anxiety disorder F34.1 Dysthymic disorder Office Visit 06/11/2017 10:15a Main Office Nurse's F11.20 Opioid dependence, Schedule uncomplicated Z71.51 Drug abuse counseling and surveillance of drug abuser Z02.89 Encounter for other administrative examinations Office Visit 05/20/2017 9:15a Main Office Daylin Martinez1.20 Opioid dependenceWilmer M.D. uncomplicated Z71.51 Drug abuse counseling and surveillance of drug abuser F90.0 Attn-defct hyperactivity disorder, predom inattentive type R11.2 Nausea with vomiting, unspecified Z79.899 Other terminal operations supervisor (current) drug therapy Office Visit 04/22/2017 10:30a Main Office Daylin Martinez1.Jone Opioid dependenceWilmer M.D. uncomplicated F41.1 Generalized anxiety disorder F34.1 Dysthymic disorder R11.2 Nausea with vomiting, unspecified F90.0 Attn-defct hyperactivity disorder, predom inattentive type Office Visit 03/24/2017 2:30p Main Office Daylin Martinez1.20 Opioid Wilmer claudio M.D. uncomplicated F41.1 Generalized anxiety disorder F34.1 Dysthymic disorder G56.02 Carpal tunnel syndrome, left upper limb R07.9 Chest pain, unspecified Office Visit 02/23/2017 3:00p Main Office Daylin Martinez1.20 Opioid dependenceWilmer M.D. uncomplicated Z71.51 Drug abuse counseling and surveillance of drug abuser F41.1 Generalized anxiety disorder F34.1 Dysthymic disorder G56.02 Carpal tunnel syndrome, left upper limb Z23 Encounter for immunization Z41.8 Encntr for oth proc for purpose oth [facility] Office Visit 01/26/2017 4:00p Main Office Daylin Martinez1.Jone Opioid Wilmer claudio M.D. uncomplicated Z71.51 Drug abuse counseling and surveillance of drug abuser F34.1 Dysthymic disorder F41.1 Generalized anxiety disorder G56.02 Carpal tunnel syndrome, left upper limb Office Visit 12/15/2016 4:15p Main Office Daylin Martinez1.Jone Opioid dependenceWilmer M.D. uncomplicated Z71.51 Drug abuse counseling and surveillance of drug abuser F41.1 Generalized anxiety disorder F34.1 Dysthymic disorder R51 Headache M54.41 Lumbago with sciatica, right side Office Visit 11/17/2016 10:45a Main Office Daylin Martinez1.20 Opioid dependenceWilmer M.D. uncomplicated Z71.51 Drug abuse counseling and surveillance of drug abuser F41.1 Generalized anxiety disorder F34.1 Dysthymic disorder Office Visit 10/15/2016 10:00a Main Office Wilmer Martinez M.D. 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 F11.20 Opioid dependence, uncomplicated Z71.51 Drug abuse counseling and surveillance of drug abuser F41.1 Generalized anxiety disorder J01.90 Acute sinusitis, unspecified Office Visit 09/30/2016 2:15p Main Office Michelle F11.20 Opioid dependence, Dulce Guillen uncomplicated Z71.51 Drug abuse counseling and surveillance of drug abuser Office Visit 09/19/2016 2:00p Main Office Michelle F11.20 Opioid dependence, Dulce Guillen uncomplicated Z71.51 Drug abuse counseling and surveillance of drug abuser F41.1 Generalized anxiety disorder F34.1 Dysthymic disorder F90.0 Attn-defct hyperactivity disorder, predom inattentive type R05 Cough B37.83 Candidal cheilitis F17.210 Nicotine dependence, cigarettes, uncomplicated Office Visit 08/22/2016 1:30p Main Office Michelle F11.20 Opioid dependenceWilmer M.D. uncomplicated F41.1 Generalized anxiety disorder F34.1 Dysthymic disorder F90.0 Attn-defct hyperactivity disorder, predom inattentive type Z71.51 Drug abuse counseling and surveillance of drug abuser Office Visit 07/21/2016 12:55p Main Office Michelle F11.20 Opioid dependenceWilmer M.D. uncomplicated F41.1 Generalized anxiety disorder F34.1 Dysthymic disorder F90.0 Attn-defct hyperactivity disorder, predom inattentive type Z71.51 Drug abuse counseling and surveillance of drug abuser Office Visit 06/04/2016 3:00p Main Office Michelle F11.20 Opioid dependence, Dulce Guillen uncomplicated F34.1 Dysthymic disorder F41.1 Generalized anxiety disorder F90.0 Attn-defct hyperactivity disorder, predom inattentive type Office Visit 05/07/2016 8:55a Main Office Michelle F11.20 Opioid dependenceWilmer M.D. uncomplicated F34.1 Dysthymic disorder F41.1 Generalized anxiety disorder F90.0 Attn-defct hyperactivity disorder, predom inattentive type Office Visit 04/09/2016 11:00a Main Office Michelle F11.20 Opioid dependenceWilmer M.D. uncomplicated F41.1 Generalized anxiety disorder F34.1 Dysthymic disorder Z71.51 Drug abuse counseling and surveillance of drug abuser Office Visit 03/12/2016 11:15a Main Office Michelle F11.20 Opioid Wilmer claudio M.D. uncomplicated F41.1 Generalized anxiety disorder F34.1 Dysthymic disorder Z23 Encounter for immunization Z41.8 Encntr for oth proc for purpose oth [facility] Office Visit 02/11/2016 1:15p Main Office Daylin Martinez1.20 Opioid Wilmer claudio M.D. uncomplicated F41.1 Generalized anxiety disorder F34.1 Dysthymic disorder Office Visit 01/28/2016 4:00p Main Office Daylin Martinez1.20 Opioid Wilmer claudio M.D. uncomplicated O99.323 Drug use complicating , third trimester F41.1 Generalized anxiety disorder F34.1 Dysthymic disorder Office Visit 01/21/2016 4:45p Main Office Michelle F11.20 Opioid Wilmer claudio M.D. uncomplicated O99.323 Drug use complicating , third trimester F41.1 Generalized anxiety disorder F34.1 Dysthymic disorder Office Visit 01/01/2016 1:45p Main Office Michelle F11.20 Opioid Wilmer claudio M.D. uncomplicated O99.323 Drug use complicating , third trimester F41.1 Generalized anxiety disorder F34.1 Dysthymic disorder Office Visit 12/07/2015 11:15a Main Office Michelle F11.20 Opioid dependenceWilmer M.D. uncomplicated O99.323 Drug use complicating , third trimester F41.1 Generalized anxiety disorder F34.1 Dysthymic disorder Office Visit 11/09/2015 9:30a Main Office Michelle F11.20 Opioid dependenceWilmer M.D. uncomplicated O99.323 Drug use complicating , third trimester R51 Headache Office Visit 10/12/2015 1:15p Main Office Daylin Martinez1.20 Opioid dependenceWilmer M.D. uncomplicated F41.1 Generalized anxiety disorder O99.323 Drug use complicating , third trimester Office Visit 09/25/2015 1:15p Main Office Michelle F11.20 Opioid dependence, Dulce Guillen uncomplicated F41.1 Generalized anxiety disorder O99.322 Drug use complicating , second trimester Office Visit 08/28/2015 12:55p Main Office Michelle F11.20 Opioid dependenceWilmer M.D. uncomplicated F41.1 Generalized anxiety disorder Z33.1 state, incidental Office Visit 07/30/2015 11:15a Main Office Michelle F11.20 Opioid dependenceWilmer M.D. uncomplicated F41.1 Generalized anxiety disorder F33.1 Major depressive disorder, recurrent, moderate G43.009 Migraine w/o aura, not intractable, w/o status migrainosus Office Visit 07/16/2015 1:30p Main Office Michelle F11.20 Opioid dependenceWilmer M.D. uncomplicated F41.1 Generalized anxiety disorder F33.1 Major depressive disorder, recurrent, moderate G47.00 Insomnia, unspecified R11.2 Nausea with vomiting, unspecified Office Visit 06/18/2015 10:15a Main Office Michelle F11.20 Opioid dependenceWilmer M.D. uncomplicated F41.1 Generalized anxiety disorder F33.1 Major depressive disorder, recurrent, moderate G47.00 Insomnia, unspecified R11.2 Nausea with vomiting, unspecified Z33.1 state, incidental K59.01 Slow transit constipation Office Visit 06/04/2015 1:45p Main Office Michelle F11.20 Opioid dependenceWilmer M.D. uncomplicated F41.1 Generalized anxiety disorder F33.1 Major depressive disorder, recurrent, moderate G47.00 Insomnia, unspecified R11.2 Nausea with vomiting, unspecified Z33.1 state, incidental Office Visit 05/25/2015 10:15a Main Office Michelle F11.20 Opioid dependenceWilmer M.D. uncomplicated F41.1 Generalized anxiety disorder F33.1 Major depressive disorder, recurrent, moderate G47.00 Insomnia, unspecified G43.009 Migraine w/o aura, not intractable, w/o status migrainosus F90.0 Attn-defct hyperactivity disorder, predom inattentive type Z33.1 state, incidental Office Visit 05/18/2015 1:30p Main Office Michelle, F11.20 Opioid dependenceWilmer M.D. uncomplicated F41.1 Generalized anxiety disorder F33.1 Major depressive disorder, recurrent, moderate F90.0 Attn-defct hyperactivity disorder, predom inattentive type G47.00 Insomnia, unspecified G43.009 Migraine w/o aura, not intractable, w/o status migrainosus Office Visit 05/02/2015 1:15p Main Office Michelle F11.20 Opioid dependenceWilmer M.D. uncomplicated F41.1 Generalized anxiety disorder F33.1 Major depressive disorder, recurrent, moderate F90.0 Attn-defct hyperactivity disorder, predom inattentive type G47.00 Insomnia, unspecified Office Visit 04/03/2015 3:00p Main Office Michelle F11.20 Opioid dependenceWilmer M.D. uncomplicated F41.1 Generalized anxiety disorder F17.210 Nicotine dependence, cigarettes, uncomplicated G43.009 Migraine w/o aura, not intractable, w/o status migrainosus R11.2 Nausea with vomiting, unspecified Office Visit 03/13/2015 1:15p Main Office Wilmer Martinez, 787.0 Nausea And M.D. Vomiting 784.0 Headache 304.00 Drug Dependence Opioid Type Unspec 300.02 Anxiety Disorder Generalized 723.1 Cervicalgia Office Visit 02/26/2015 9:30a Main Office Wilmer Martinez 304.00 Drug Dependence M.DMariah Opioid Type Unspec 784.0 Headache 787.0 Nausea And Vomiting v04.81 Need For Prophylactic Vaccination & Inoculation/Influenza v07.2 Prophylactic Immunotherapy Office Visit 02/21/2015 2:30p Main Office Wilmer Martinez M.D. 784.0 Headache 787.0 Nausea And Vomiting 300.02 Anxiety Disorder Generalized 296.32 Depressive Disorder Major Recurrent Moderate Office Visit 01/29/2015 4:30p Main Office Wilmer Martinez 304.00 Drug Dependence M.DMariah Opioid Type Unspec 300.02 Anxiety Disorder Generalized 296.32 Depressive Disorder Major Recurrent Moderate 787.0 Nausea And Vomiting Office Visit 01/02/2015 9:30a Main Office Silcoff, Wilmer, 304.00 Drug Dependence M.D. Opioid Type Unspec 300.02 Anxiety Disorder Generalized 296.32 Depressive Disorder Major Recurrent Moderate 787.0 Nausea And Vomiting Office Visit 12/05/2014 9:45a Main Office Wilmer Martinez, 304.00 Drug Dependence M.D. Opioid Type Unspec 782.1 Rash & Other Nonspec Skin Eruption 296.32 Depressive Disorder Major Recurrent Moderate 300.02 Anxiety Disorder Generalized V58.83 Encounter For Therapeutic Drug Monitoring Office Visit 11/15/2014 4:00p Main Office Wilmer Martinez 782.1 Rash & Other M.D. Nonspec Skin Eruption 708.9 Urticaria Unspec Office Visit 11/07/2014 11:30a Main Office Wilmer Martinez 304.00 Drug Dependence M.D. Opioid Type Unspec V58.83 Encounter For Therapeutic Drug Monitoring 783.1 Weight Gain Abnormal Office Visit 10/10/2014 12:55p Main Office Wilmer Martinez 304.00 Drug Dependence M.D. Opioid Type Unspec V58.83 Encounter For Therapeutic Drug Monitoring 780.52 Insomnia Unspecified 783.1 Weight Gain Abnormal 296.32 Depressive Disorder Major Recurrent Moderate V06.1 Uvpdnawvyk-Gjcqqfz-Wcqtobkl Combined (DTaP) V07.2 Prophylactic Immunotherapy Office Visit 09/12/2014 9:30a Main Office Wilmer Martinez, 304.00 Drug Dependence M.D. Opioid Type Unspec V58.83 Encounter For Therapeutic Drug Monitoring 305.1 Tobacco Use Disorder 564.00 Constipation Unspecified 787.02 Nausea Alone V72.41 Test Negative Office Visit 08/15/2014 9:30a Main Office Wilmer Martinez, 304.00 Drug Dependence M.D. Opioid Type Unspec 780.52 Insomnia Unspecified 305.1 Tobacco Use Disorder Office Visit 07/18/2014 9:45a Main Office Wilmer Martinez 304.00 Drug Dependence M.D. Opioid Type Unspec 780.52 Insomnia Unspecified 305.1 Tobacco Use Disorder V58.83 Encounter For Therapeutic Drug Monitoring Office Visit 06/20/2014 1:45p Main Office Wilmer Martinez, 304.00 Drug Dependence M.D. Opioid Type Unspec 780.52 Insomnia Unspecified 564.00 Constipation Unspecified V58.83 Encounter For Therapeutic Drug Monitoring 305.1 Tobacco Use Disorder Office Visit 06/06/2014 2:00p Main Office Wilmer Martinez, 304.00 Drug Dependence M.D. Opioid Type Unspec 780.52 Insomnia Unspecified 564.00 Constipation Unspecified V58.83 Encounter For Therapeutic Drug Monitoring Office Visit 05/23/2014 12:55p Main Office Wilmer Martinez, 304.00 Drug Dependence M.D. Opioid Type Unspec 780.52 Insomnia Unspecified 564.00 Constipation Unspecified Office Visit 05/08/2014 10:15a Main Office Wilmer Martinez, 304.00 Drug Dependence M.D. Opioid Type Unspec 305.90 Drug Abuse Other Mixed Or Unspec 564.00 Constipation Unspecified 719.47 Pain Joint Ankle & Foot 780.52 Insomnia Unspecified 304.01 Drug Dependence Opioid Type Continuous 729.81 Swelling Of Limb Office Visit 04/24/2014 2:30p Main Office Wilmer Martinez, 304.00 Drug Dependence M.D. Opioid Type Unspec 278.4 Hypervitaminosis D 564.00 Constipation Unspecified Office Visit 04/17/2014 3:30p Main Office Wilmer Martinez, 304.00 Drug Dependence M.D. Opioid Type Unspec 305.90 Drug Abuse Other Mixed Or Unspec 790.6 Abnormal Blood Chemistry Other V58.83 Encounter For Therapeutic Drug Monitoring Office Visit 06/14/2013 5:04p Yahaira Avalos 616.10 Vaginitis & Addiction Andreas, P.A. Vulvovaginitis Recovery Unspec Services V72.60 Laboratory Examination, Unspecified 305.53 Opioid Abuse In Remission 305.23 Cannabis Abuse In Remission Office Visit 06/07/2013 6:32p Yahaira Johns, 795.11 Pap Smear Of Recovery Services [facility] Vagina With Asc-US V76.10 Screening For Malignant Neoplasm Breast 300.02 Anxiety Disorder Generalized V74.5 Screening Examination Venereal Disease 305.23 Cannabis Abuse In Remission 305.53 Opioid Abuse In Remission Office Visit 05/31/2013 6:22p Yahaira Johns, 354.0 Carpal Tunnel [facility] Syndrome 305.23 Cannabis Abuse In Remission 305.53 Opioid Abuse In Remission Office Visit 05/17/2013 6:48p Yahaira Johns, 369.9 Visual Loss [facility] Unspec 300.00 Anxiety State Unspec 296.32 Depressive Disorder Major Recurrent Moderate 305.23 Cannabis Abuse In Remission 305.53 Opioid Abuse In Remission Office Visit 04/19/2013 7:49p [place] [facility] Bailey Johns, 564.00 Constipation Recovery P.A. Unspecified Services 305.53 Opioid Abuse In Remission 300.02 Anxiety Disorder Generalized 296.32 Depressive Disorder Major Recurrent Moderate 285.9 Anemia Unspec Office Visit 04/12/2013 7:44p [place] [facility] Bailey Johns, 296.32 Depressive Recovery [facility] Disorder Major Services Recurrent Moderate 300.02 Anxiety Disorder Generalized 785.2 Murmur Cardiac Undiagnosed 305.53 Opioid Abuse In Remission 305.23 Cannabis Abuse In Remission Office Visit 04/05/2013 7:32p [place] [facility] Bailey Johns, 305.53 Opioid Abuse In Recovery Services P[facility] Remission 305.23 Cannabis Abuse In Remission 285.9 Anemia Unspec 296.32 Depressive Disorder Major Recurrent Moderate 300.02 Anxiety Disorder Generalized Office Visit 03/29/2013 2:18p [place] [facility] Bailey Johns, 354.0 Carpal Tunnel [facility] Syndrome 727.04 Tenosynovitis Radial Styloid 564.00 Constipation Unspecified 285.9 Anemia Unspec 305.53 Opioid Abuse In Remission 305.23 Cannabis Abuse In Remission Office Visit 03/22/2013 7:57p [place] [facility] Bailey Johns, 614.8 Inflammatory Recovery [facility] Disease Female Services Pelvic Organs & Tissues Spec Oth 789.03 Pain Abdominal Right Lower Quadrant 305.53 Opioid Abuse In Remission 305.23 Cannabis Abuse In Remission 354.0 Carpal Tunnel Syndrome 727.04 Tenosynovitis Radial Styloid Plan of Treatment Future Appointment(s):09/24/2018 8:55 am - Wilmer Martinez M.D. at [facility]09/04/2017 - Bailey Johns, P.A.Z00.01 Encounter for general adult medical examination with abnormal findingsComments:UA lgbinstezfjhB90.39 Encounter for other screening for malignant neoplasm of breastComments: unremarkable examZ12.4 Encounter for screening for malignant neoplasm of ngollcU06.20 Opioid dependence, iuqibfwqwoktqJ39.220 Encounter for screening for lipoid enhmzhgrhF51.8 Encounter for other procedures for purposes other than remedying health aoxnxK49.9 Disorder of teeth and supporting structures, unspecifiedComments:This issue has been previously addressed, no change at this time. Pt to look into another oral surgeon, does not want narcotic pain medication, will treat with tylenol and ibuprofen if pain erkawvaX91.210 Nicotine dependence, cigarettes, uncomplicatedFollow up:any time you want to quit try calling the [place] [facility]uitline - 1 800 RI Quits and they can get you started
[2018-08-26 11:39] VITALS: BP 117/66
--- NOTE | 2018-08-26 12:20 | UC ---
Shoulder Pain HPI - HPI Summary HPI Summary: 33-year-old woman comes in with a chief complaint of right shoulder pain. He has had several days of aching beneath the right scapula. In the last day she was at home lifting something and had sudden increased pain in that same area. The pain radiates down her right arm into her right side of her neck. She does have intermittent numbness in the arm and hand but it goes away on its own. Pain is worse with any kind range of motion taking a deep breath or coughing. Patient denies any shortness of breath or difficulty breathing. - History of Current Complaint Chief Complaint: UCUpperExtremity Stated Complaint: SHOULDER PAIN Time Seen by Provider: 08/26/18 12:07 Hx Last Menstrual Period: 08/07/18 Pain Intensity: 8 - Allergies/Home Medications Allergies/Adverse Reactions: Allergies Allergy/AdvReac Type Severity Reaction Status Date / Time No Known Allergies Allergy Verified 08/26/18 11:39 PMH/Surg Hx/FS Hx/Imm Hx Previously Healthy: Yes - Surgical History Surgical History: Yes Surgery Procedure, Year, and Place: 1996-FRACTURED FEMUR RIGHT-RPH, CARPAL TUNNEL ON RT HAND - Family History Known Family History: Positive: Non-Contributory - Social History Alcohol Use: None Substance Use Type: Marijuana Substance Use Comment - Amount & Last Used: 2 POTS OF COFFEE A DAY Smoking Status (MU): Light Every Day Tobacco Smoker Type: Cigarettes Amount Used/How Often: 1/2 PPD X 15 YEARS Length of Time of Smoking/Using Tobacco: 15 YEARS - Immunization History Most Recent Influenza Vaccination: 03/2015 Most Recent Tetanus Shot: 10/29/15 Most Recent Pneumonia Vaccination: none Review of Systems All Other Systems Reviewed And Are Negative: Yes Constitutional: Positive: Negative Skin: Positive: Negative Eyes: Positive: Negative ENT: Positive: Negative Respiratory: Positive: Negative Cardiovascular: Positive: Negative Gastrointestinal: Positive: Negative Motor: Positive: Negative Neurovascular: Positive: Negative Musculoskeletal: Positive: Other: - SEE HPI Neurological: Positive: Paresthesia Psychological: Positive: Negative Is Patient Immunocompromised?: No Physical Exam Triage Information Reviewed: Yes Appearance: Well-Appearing, Well-Nourished, Pain Distress - MILD AT REST. MODERATE Vital Signs: Initial Vital Signs Temp 97.4 F 08/26/18 11:33 Pulse 80 08/26/18 11:33 Resp 22 08/26/18 11:33 BP 117/66 08/26/18 11:33 Pulse Ox 96 08/26/18 11:33 Vital Signs Reviewed: Yes Eye Exam: Normal Eyes: Positive: Conjunctiva Clear Neck: Positive: Supple, Other: - MILD TENDERNESS Respiratory: Positive: No respiratory distress, Rhonchi - MILD RHONCHI B/L, Other: - BREATH SOUNDS B/L EQUAL Cardiovascular: Positive: RRR Musculoskeletal: Positive: Other: - Radial pulses normal bilaterally. No sensation deficit in the arms on exam. Capillary refill normal bilaterally. Fingers wrist elbows full range of motion full-strength. Decreased range of motion of the right shoulder secondary to pain. Patient is tender to palpation in the paraspinous muscles and the trapezius muscles over the right scapula. Neurological: Positive: Alert, Muscle Tone Normal Psychological Exam: Normal Psychological: Positive: Age Appropriate Behavior Skin Exam: Normal Shoulder Course/Dx - Course Course Of Treatment: History and examination are most consistent with a musculoskeletal strain in the right scapular area. There is intermittent paresthesias indicating some inflammation. No weakness or numbness found on examination. Decreased range of motion secondary to pain. There are good breath sounds bilaterally in the lungs. Patient does have some rhonchi which she reports is chronic and she is a smoker. Plan is to follow-up with her primary care doctor reevaluate sooner if worse or any questions or concerns. - Differential Dx/Diagnosis Provider Diagnosis: Right shoulder pain Discharge - Sign-Out/Discharge Documenting (check all that apply): Patient Departure All imaging exams completed and their final reports reviewed: No Studies - Discharge Plan Condition: Stable Disposition: HOME Prescriptions: Cyclobenzaprine TAB* [Flexeril 10 MG TAB*] 10 mg PO TID PRN #15 tab MDD 3 PRN Reason: Pain Patient Education Materials: Shoulder Pain (ED) Referrals: Wilmer Martinez MD [Primary Care Provider] - Additional Instructions: FOLLOW UP WITH YOUR DOCTOR IF NOT COMPLETELY IMPROVED. GET RECHECKED FOR ANY WORSENING OF YOUR CONDITION; WEAKNESS, NUMBNESS, PAIN, SHORTNESS OF BREATH OR QUESTIONS OR CONCERNS. - Billing Disposition and Condition Condition: STABLE Disposition: Home
== END 2018-08-26 12:25 | disposition home or self-care (01) ==
LOC: UCEAST 11:25
DX: M25.511 Pain in right shoulder (principal); F17.210 Nicotine dependence, cigarettes, uncomplicated
CPT/HCPCS: 99212; G0463

== ENCOUNTER 2019-02-20 08:57 | Emergency (ER) | payer OTHER ==
--- OUTSIDE RECORDS SUMMARY | 2019-02-20 09:04 | XMS REPORT | Continuity of Care Document ---
:1985 External Reference #:[id number] Author Name Wilmer Martinez M.D. Address [address] [facility] [address] [place] [address] Care Team Providers Name Role Phone Sylwia Jones MD - Orthopaedic Care Team Information Communications Maintainer [phone] Surgery HCP given Care Team Information Communications Maintainer Unavailable Problems Active Problems Provider Date Opioid dependence Wilmer Martinez M.D. Onset: 05/23/2014 Insomnia Wilmer Martinez M.D. Onset: 05/23/2014 Opioid dependence, uncomplicated Wilmer Martinez M.D. Onset: 04/03/2015 Headache Wilmer Martinez M.D. Onset: 04/03/2015 Generalized anxiety disorder Wilmer Martinez M.D. Onset: 04/03/2015 Tobacco user Wilmer Martinez M.D. Onset: 04/03/2015 Migraine without aura, not refractory Wilmer Martinez M.D. 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 Onset: 04/22/2017 Social History Type Date Description Comments Sex Unknown Tobacco Use Reviewed: current cigarette 1/2 ppd; trying to cut 11/27/18 smoker down/quit (as of 11/27/18). failed Chantix b/o nightmares; failed nicotine patch ETOH Use Rarely consumes alcohol Recreational Drug Use Current Drug User Long Hx polysubstance abuse, opioid dependence Started using MJ at age 13, 'pills' at age 15, then heroin and hallucinogens at age 17 (+) Hx needle sharing Admitted to [facility] in 2012 (at [facility] time suboxone was started), then transferred to [facility], where she stayed for 4 months, but got kicked out after getting caught with drugs. She subsequently got back into heroin, ended up going to [facility] in July and again in December, 1 week each time, for detox only. She transferred her care from [facility] to the [facility] in summer 2013. Tobacco Use Reviewed: Patient is a current 1/2ppd, some days more 12/06/18 smoker, smokes every day Smoking Status Reviewed: Patient is a current 1/2ppd, some days more 12/06/18 smoker, smokes every day Sun Exposure Does not use sunscreen Seat Belt/Car Seat Seat Belt Use - Yes Allergies, Adverse Reactions, Alerts Description No Known Drug Allergies Medications Active Medications SIG Qnty Indications Ordering Provider Date Albuterol Sulfate HFA 2 puffs up to 8.500gm R06.2 Wilmer Martinez, 2018 every 4hrs as M.D. 108(90Base) mcg/Act needed fo cough, Aerosol wheezing, SOB R05 Nicotine apply 1 patch, 28units F17.210 Wilmer Martinez, 12/06/2018 21mg/24HR Patches change daily as M.D. 24HR directed Airduo Respiclick 232/14 1 inhalation 1units R06.2 Wilmer Martinez, 2018 2x/day; for cough M.D. 232-14mcg/Act Aerosol and wheezing; rinse mouth out after use Methylphenidate 1 by mouth every 60tabs F90.0 Wilmer Martinez, 10/13/2018 Hydrochloride ER morning and again M.D. 36mg Tablets in early to mid ER afternoon; for adhd; rx due 02/21/19 Buprenorphine HCL 1.5 tablets 2x/day 90tabs F11.20 Wilmer Martinez, 2018 8mg Tablets (or take 1 tablet M.D. Sub 3x/day); prescriber# [id number]; rx due 02/21/19 Guaifenesin ER 1 twice a day as 14tabs J20.9 Wilmer Martinez, 06/07/2018 1200mg Tablets needed for chest M.D. ER 12HR congestion Ibuprofen Take One Tablet By 90tabs M54.41 Wilmer Martinez, 01/19/2018 800mg Tablets Mouth Every 8 M.D. Hours as Needed For Back Pain And Headaches R51 Fluticasone two sprays (50 16units J01.90 Wilmer Martinez, 12/14/2017 Propionate mcg/spray) per M.D. 50mcg/Act nostril once daily Suspension (can also try one spray per nostril bid) for allergies Venlafaxine HCL ER Take One Capsule By 30caps F41.1 Romel Brandon, 2017 Mouth Every Morning D.O. 150mg Caps ER 24HR For Mood F34.1 Tizanidine HCL Take One Tablet By 90tabs M54.5 Wilmer Martinez, 07/08/2017 4mg Mouth Three Times M.D. Tablets A Day as Needed For Muscle Spasms Diclofenac Sodium Apply 4G To 100units M54.5 Wilmre Martinez, 07/07/2017 1% Gel Affected Area Four M.D. Times A Day For Pain Nystatin apply to affected 30units B37.83 Wilmer Martinez, 09/19/2016 [id number]/GM area(s) in corners M.D. Cream of mouth three times a day as needed; resume as needed Gabapentin take one tablet by 120tabs F41.1 Wilmer Martinez, 08/22/2016 600mg Tablets mouth every 6 M.D. hours as needed for anxiety SM Acid Bight Maker 1 po daily as Unknown 11/26/2015 Maximum Strength needed 150mg Tablets Promethazine HCL Take One Tablet By 90tabs Wilmer Martinez, 07/03/2015 25mg Mouth Every 6 M.D. Tablets Hours as Needed For Nausea History Medications Montelukast Sodium take one tablet 30tabs R06.2 Wilmer Martinez, 2018 - 10mg by mouth every M.D. 02/07/2019 Tablets evening for cough Amoxicillin 1 tab by mouth 20tabs R05 Wilmer Martinez, 12/06/2018 - 875mg twice a day x 10 M.D. 12/16/2018 Tablets days; for cough Azithromycin 2 by mouth on 6tabs R05 Wilmer Martinez, 11/17/2018 - 250mg day then 1 by M.D. 11/22/2018 Tablets mouth daily for 4 more days; for cough Prednisone 1 by mouth every 5tabs R06.2 Wilmer Martinez, 11/17/2018 - 50mg Tablets day x5 days for M.D. 11/22/2018 cough and wheezing Symbicort 2 puffs 2x/day; 1sample R06.2 Wilmer Martinez, 11/17/2018 - gargle after use M.DMariah 11/19/2018 160-4.5mcg/Act Aerosol Medications Administered in Office Medication SIG Qnty Indications Ordering Provider Date SC/Im Injections Wilmer Martinez M.D. 09/21/2017 Injection Immunizations CPT Code Status Date Vaccine Lot # [id number] Given 03/26/2018 Influenza Virus Vaccine, Quadrivalent, Split, [id number] Preservative Free 30478 Given 02/23/2017 Influenza Virus Vaccine, Quadrivalent, Split, [id number] Preservative Free 68466 Given 03/12/2016 Influenza Virus Vaccine, Quadrivalent, Split, [id number] Preservative Free 62093 Given 02/26/2015 Influenza Virus Vaccine, Quadrivalent, Split, [id number] Preservative Free 57851 Given 10/10/2014 Adacel or Boostrix, TDaP [id number] 15553 Given 05/04/2014 Flu, Split Virus 3Yrs 10455 Given 04/12/2001 MMR Virus Immunization 78883 Given 09/04/2000 Hep B Immunization, Ped/Adolescent To 11 Yrs 74556 Given 12/21/1998 Hep B Immunization, Ped/Adolescent To 11 Yrs 81902 Given 12/21/1998 Poliomyelitis Immunization 59348 Given 11/19/1998 Td Immunization 99234 Given 11/19/1998 Hep B Immunization, Ped/Adolescent To 11 Yrs 52993 Given 12/18/1987 Hep B Immunization, Ped/Adolescent To 11 Yrs 42209 Given 12/18/1987 Poliomyelitis Immunization 53305 Given 12/18/1987 DTP Immunization 37553 Given 08/22/1987 MMR Virus Immunization 68249 Given 1985 Poliomyelitis Immunization 25249 Given 1985 DTP Immunization 29250 Given 1985 Poliomyelitis Immunization 83285 Given 1985 DTP Immunization 03404 Given 1985 Poliomyelitis Immunization 96578 Given 1986 DTP Immunization Vital Signs Date Vital Result Comment 02/07/2019 10:33am BP Systolic 122 mmHg BP Diastolic 64 mmHg Weight 196.00 lb 01/05/2019 11:43am BP Systolic 110 mmHg BP Diastolic 62 mmHg Weight 195.50 lb w/sneakers Results Test Date Facility Test Result H/L Range Note Urine Drug Screen Inhouse 02/07/2019 In House U[facility] Cocaine - Ua Opiates - Ua Amphetamines - Urine Methanphetamines - Urine Benzodiazepines QN [place] - Urine Oxycodone QL - Laboratory test 11/27/2018 [facility] Culture Genital & SEE RESULT 1 finding [phone] Sensitivity BELOW Laboratory test 11/27/2018 [facility] Cytology SEE RESULT 2 finding [phone] BELOW GC/Chlamydia 11/27/2018 [facility] Chlamydia Negative Negative Amplified Rna [phone] trachomatis Rna Neisseria gonorrhoeae (GC) Rna Negative Negative Urine Drug Screen Inhouse 08/25/2018 In House Ua Cocaine - Ua Opiates - Ua Amphetamines - Urine Methanphetamines - Urine Benzodiazepines QN [place] - Urine Oxycodone QL - 1 SEE RESULT BELOW Name: JOVITA DANIELS : [address]: Venita GONZALEZ Acct: [id number] Unit: [id number] AGE: 33 Location: [facility] Re11/27/18 SEX: F Status: REG REF SPEC: [id number] NICHOLE: 11/27/18-[address] [facility] [address]: Venita GONZALEZ REQ: [id number] RECD: 11/30/18 STATUS: FAVIO ARREGUIN DR: Romel Branodn DO _ SOURCE: VAGINAL SPDESC: ORDERED: Genital Culture COMMENTS: [id number] Procedure Result Reported Site Genital Culture Final 12/02/18- 1049 ML Organism 1 NORMAL IWONA Quantity 3+ Routine genital cultures do not include selective agar for Neisseria gonorrhoeae. Molecular testing offers better test sensitivity and therefore is the preferred test methodology for identifying this organism. * ML - Main Lab . END OF REPORT DEPARTMENT OF PATHOLOGY, [address] [place] [address] Stuart Taylor M.D. Director [facility] # [id number] 2 SEE RESULT BELOW Name: JOVITA DANIELS : [address]: Venita GOZNALEZ Acct: [id number] Unit: [id number] AGE: 33 Location: [facility] Re11/27/18 SEX: F Status: REG REF SPEC: [id number] NICHOLE: 11/27/18-[address]: Venita GONZALEZ REQ: [id number] RECD: 11/30/180888 STATUS: SOUT _ ORDERED: TP IMAGE ANALYS, HPV/Thin Prep COMMENTS: [id number] Negative for Intraepithelial lesion or Malignancy Date Time Test Result Flag (u) Normal Range 11/27/18 1028 HPV RNA Negative Negative The high-risk HPV types detected by the assay include: 16, 18, 31, 33, 35, 39, 45, 51, 52, 56, 58, 59, 66, and 68. A. Ectocervical/Endocervical Specimen Adequacy: Satisfactory of evaluation Transformation zone component identified Patient Information: HPV: High risk HPV RNA testing regardless of pap results. Actual Specimen Date: 11/27/18 Spec Date if unknown: 09/2017 ?: N Post Menopausal?: N Hysterectomy?: N Previous Abnormal Pap Smears?:N Signed by and Reported on: ROSALIA Mendoza (ASC) 1504 This Pap test was evaluated with the assistance of the [employer] Test Imaging System. Due to cytologic findings at the laundry manager microscope, comprehensive manual rescreening by a Washer And Crusher Tender may be required. The Pap Smear is [...] years. END OF REPORT DEPARTMENT OF PATHOLOGY, [address] [place] [address] Stuart Taylor M.D. Director [facility] # [id number] Procedures Date Code Description Status 12/06/2018 65230 Bronchospasm Evaluation Pre & Post Completed Medical Devices Description No Information Available Encounters Type Date Location Provider Dx Diagnosis Office Visit 01/05/2019 Main Office Wilmer Martinez F11.20 Opioid dependence, 11:30a M.DMariah uncomplicated F34.1 Dysthymic disorder F41.1 Generalized anxiety disorder F17.210 Nicotine dependence, cigarettes, uncomplicated R05 Cough R06.2 Wheezing F90.0 Attn-defct hyperactivity disorder, predom inattentive type Office Visit 12/06/2018 11:00a Main Office Michelle F11.20 Opioid dependence, Dulce Guillen uncomplicated F34.1 Dysthymic disorder F41.1 Generalized anxiety disorder F17.210 Nicotine dependence, cigarettes, uncomplicated R05 Cough R06.2 Wheezing Office Visit 11/27/2018 9:45a Main Office Venita Barbour PA Z12.4 Encounter for screening for malignant neoplasm of cervix Z11.3 Encntr screen for infections w sexl mode of transmiss N76.0 Acute vaginitis K64.9 Unspecified hemorrhoids K59.00 Constipation, unspecified F17.210 Nicotine dependence, cigarettes, uncomplicated Z68.30 Body mass index (BMI) 30.0-30.9, adult Office Visit 11/17/2018 2:00p Main Office Michelle F11.20 Opioid dependenceWilmer M.D. uncomplicated F34.1 Dysthymic disorder F41.1 Generalized anxiety disorder F90.0 Attn-defct hyperactivity disorder, predom inattentive type R05 Cough R06.2 Wheezing Office Visit 10/13/2018 11:30a Main Office Michelle F11.20 Opioid dependenceWilmer M.D. uncomplicated F34.1 Dysthymic disorder F41.1 Generalized anxiety disorder F90.0 Attn-defct hyperactivity disorder, predom inattentive type Z71.51 Drug abuse counseling and surveillance of drug abuser Office Visit 09/24/2018 8:55a Main Office Michelle F11.20 Opioid dependenceWilmer M.D. uncomplicated F34.1 Dysthymic disorder F41.1 Generalized anxiety disorder Office Visit 08/25/2018 2:45p Main Office Michelle F11.20 Opioid dependenceWilmer M.D. uncomplicated F34.1 Dysthymic disorder F41.1 Generalized anxiety disorder F90.0 Attn-defct hyperactivity disorder, predom inattentive type Z71.51 Drug abuse counseling and surveillance of drug abuser Assessments Date Code Description Provider 02/07/2019 F11.20 Opioid dependence, uncomplicated Wilmer Martinez M.D. 02/07/2019 F34.1 Dysthymic disorder Wilmer Martinez M.D. 02/07/2019 F41.1 Generalized anxiety disorder Wilmer Martinez M.D. 02/07/2019 F90.0 Attention-deficit hyperactivity disorder, Wilmer Martinez M.D. predominantly inat 02/07/2019 F17.210 Nicotine dependence, cigarettes, Wilmer Martinez M.D. uncomplicated 02/07/2019 R05 Cough Wilmer Martinez M.D. 02/07/2019 R06.2 Wheezing Wilmer Martinez M.D. 01/05/2019 F11.20 Opioid dependence, uncomplicated Wilmer Martinez M.D. 01/05/2019 F34.1 Dysthymic disorder Wilmer Martinez M.D. 01/05/2019 F41.1 Generalized anxiety disorder Wilmer Martinez M.D. 01/05/2019 F17.210 Nicotine dependence, cigarettes, Wilmer Martinez M.D. uncomplicated 01/05/2019 R05 Cough Wilmer Martinez M.D. 01/05/2019 R06.2 Wheezing Wilmer Martinez M.D. 01/05/2019 F90.0 Attention-deficit hyperactivity disorder, Wilmer Martinez M.D. predominantly inat 12/06/2018 F11.20 Opioid dependence, Wilmer Zamora M.D. 12/06/2018 F34.1 Dysthymic disorder Wilmer Martinez M.D. 12/06/2018 F41.1 Generalized anxiety disorder Wilmer Martinez M.D. 12/06/2018 F17.210 Nicotine dependence, cigarettes, Wilmer Martinez M.D. uncomplicated 12/06/2018 R05 Cough Wilmer Martinez M.D. 12/06/2018 R06.2 Wheezing Wilmer Martinez M.D. 11/27/2018 Z12.4 Encounter for screening for malignant Venita Barbour PA neoplasm of cervix 11/27/2018 Z11.3 Encounter for screening for infections with Venita Barbour PA a predominantly 11/27/2018 N76.0 Acute vaginitis Angle CELSO Nathan 11/27/2018 K64.9 Unspecified hemorrhoids Angle CELSO Nathan 11/27/2018 K59.00 Constipation, unspecified Robertayamil CELSO Nathan 11/27/2018 F17.210 Nicotine dependence, cigarettes, Quinn BarbourCELSO villalba uncomplicated 11/27/2018 Z68.30 Body mass index (BMI) 30.0-30.9, adult AngleVenita PA 11/17/2018 F11.20 Opioid dependence, uncomplicated Wilmer Martinez M.D. 11/17/2018 F34.1 Dysthymic disorder Wilmer Martinez M.D. 11/17/2018 F41.1 Generalized anxiety disorder Wilmre Martinez M.D. 11/17/2018 F90.0 Attention-deficit hyperactivity disorder, Wilmer Martinez M.D. predominantly inat 11/17/2018 R05 Cough Wilmer Martinez M.D. 11/17/2018 R06.2 Wheezing Wilmer Martinez M.D. 10/13/2018 F11.20 Opioid dependence, Wilmer Zamora M.D. 10/13/2018 F34.1 Dysthymic disorder Wilmer Martinez M.D. 10/13/2018 F41.1 Generalized anxiety disorder Wilmer Martinez M.D. 10/13/2018 F90.0 Attention-deficit hyperactivity disorder, Wilmer Martinez M.D. predominantly inat 10/13/2018 Z71.51 Drug abuse counseling and surveillance of Wilmer Martinez M.D. drug abuser 09/24/2018 F11.20 Opioid dependence, uncomplicated Wilmer Martinez M.D. 09/24/2018 F34.1 Dysthymic disorder Wilmer Martinez M.D. 09/24/2018 F41.1 Generalized anxiety disorder Wilmer Martinez M.D. 08/25/2018 F11.20 Opioid dependence, Wilmer Zamora M.D. 08/25/2018 F34.1 Dysthymic disorder Wilmer Martinez M.D. 08/25/2018 F41.1 Generalized anxiety disorder Wilmer Martinez M.D. 08/25/2018 F90.0 Attention-deficit hyperactivity disorder, Wilmer Martinez M.D. predominantly inat 08/25/2018 Z71.51 Drug abuse counseling and surveillance of Wilmer Martinez M.D. drug abuser Plan of Treatment Future Appointment(s):03/14/2019 10:15 am - Wilmer Martinez M.D. at Main Jzkfod4111/17/2018 - Wilmer Martinez M.D.F11.20 Opioid dependence, nojrebrncopdjH88.1 Dysthymic jliwaxstR27.1 Generalized anxiety clxllukiE45.0 Attention-deficit hyperactivity disorder, predominantly inatR05 CoughNew Medication:Azithromycin 250 mg - 2 by mouth on day then 1 by mouth daily for 4 more days; for hkyvgN09.2 WheezingNew Medication:Prednisone 50 mg - 1 by mouth every day x5 days for cough and wheezingSymbicort 160-4.5 mcg/Act - 2 puffs 2x/ day; gargle after useFollow up:RTO 1-2wks w/ spirometry pre and post. Try not to use your rescue inhaler for 24hrs prior. Functional Status Description No Information Available Mental Status Description No Information Available Referrals Description No Information Available
[2019-02-20 09:11] VITALS: BP 130/72
--- NOTE | 2019-02-20 09:28 | UC ---
Respiratory Complaint HPI - HPI Summary HPI Summary: patient reports cough for several months, has been on several antibiotics from PCP and gets better, but then cough returns. over past 3-4 day sputum has turned dark yellow and thick and has a "nasty" taste. She had right eye redness yesterday and this am her eye was stuck shut , she has had white discharge since. - History of Current Complaint Chief Complaint: UCGeneralIllness Stated Complaint: EYE ISSUE CHEST CONGESTION Time Seen by Provider: 02/20/19 09:00 Hx Obtained From: Patient Hx Last Menstrual Period: 02/09/19 ?: No Onset/Duration: Gradual Onset Severity Initially: Mild Severity Currently: Mild Pain Intensity: 3 Character: Cough: Productive Aggravating Factors: Exertion, Recumbent Position Alleviating Factors: Nothing Associated Signs And Symptoms: Positive: Wheezing, Nasal Congestion. Negative: Dyspnea, Fever, Chills, Hemoptysis, Calf Pain, Calf Swelling - Allergies/Home Medications Allergies/Adverse Reactions: Allergies Allergy/AdvReac Type Severity Reaction Status Date / Time No Known Allergies Allergy Verified 02/20/19 09:17 Home Medications: Home Medications Albuterol HFA INHALER* [Ventolin HFA Inhaler*] 2 puff INH Q4HR PRN 02/20/19 [ History Confirmed 02/20/19] Fluticasone/Salmeterol [Airduo Respiclick 113-14 Mcg] 2 puff INH DAILY 02/20/19 [History Confirmed 02/20/19] Gabapentin 600 mg PO Q6HR 02/20/19 [History Confirmed 02/20/19] Methylphenidate HCl [Methylphenidate ER] 1 tab PO BID 02/20/19 [History Confirmed 02/20/19] Promethazine HCl 1 tab PO DAILY 02/20/19 [History Confirmed 02/20/19] Venlafaxine ER (NF) [Effexor ER (NF)] 1 tab PO DAILY 02/20/19 [History Confirmed 02/20/19] PMH/Surg Hx/FS Hx/Imm Hx Previously Healthy: Yes Respiratory History: Asthma Psychological History: Anxiety, Depression, Other - opiate abuse, ADHD - Surgical History Surgical History: Yes Surgery Procedure, Year, and Place: 1996-FRACTURED FEMUR RIGHT-RPH, CARPAL TUNNEL ON RT HAND. oral surgery x2 - Family History Known Family History: Positive: Non-Contributory - Social History Occupation: Employed Full-time Lives: With Family Alcohol Use: None Substance Use Type: Marijuana, Prescribed Substance Use Comment - Amount & Last Used: 2 POTS OF COFFEE A DAY Smoking Status (MU): Light Every Day Tobacco Smoker Type: Cigarettes Amount Used/How Often: 1/2 PPD X 15 YEARS Length of Time of Smoking/Using Tobacco: 15 YEARS Household Exposure Type: Cigarettes Cessation Counseling: Patient Advised to Stop - Immunization History Most Recent Influenza Vaccination: 03/2015 Most Recent Tetanus Shot: 10/29/15 Most Recent Pneumonia Vaccination: none Review of Systems All Other Systems Reviewed And Are Negative: Yes Constitutional: Positive: Negative Skin: Positive: Negative. Negative: Rash Respiratory: Positive: Cough Cardiovascular: Positive: Negative. Negative: Chest Pain Gastrointestinal: Positive: Negative Neurological: Positive: Negative. Negative: Headache Psychological: Positive: Negative Is Patient Immunocompromised?: No Physical Exam Triage Information Reviewed: Yes Appearance: Well-Appearing, No Pain Distress, Well-Nourished Vital Signs: Initial Vital Signs Temp 97.4 F 02/20/19 09:04 Pulse 94 02/20/19 09:04 Resp 20 02/20/19 09:04 BP 130/72 02/20/19 09:04 Pulse Ox 97 02/20/19 09:04 Vital Signs Reviewed: Yes Eyes: Positive: Conjunctiva Inflamed - Right eye only, no current discaharge on exam ENT: Positive: Pharynx normal, Nasal congestion, TMs normal. Negative: Sinus tenderness Neck exam: Normal Neck: Positive: Supple, Nontender, No Lymphadenopathy Respiratory: Positive: No respiratory distress, Wheezing, Other: - productive cough Cardiovascular Exam: Normal Cardiovascular: Positive: RRR Neurological Exam: Normal Neurological: Positive: Alert Psychological Exam: Normal Skin Exam: Normal Skin: Negative: Rashes Diagnostics - Radiology No standard instances Radiology Interpretation Completed By: Radiologist - HYPERINFLATION WHICH CAN BE ASSOCIATED WITH COPD OR REACTIVE AIRWAY DISEASE. Re-Evaluation - Re-Evaluation First Eval Change: Improved - patient states she feels lik eshe is getting more air after nebulizer treatment Respiratory Course/Dx - Differential Dx/Diagnosis Differential Diagnosis/HQI/PQRI: Asthma, Bronchitis, Lower Resp Infection, Sinusitis Provider Diagnosis: Conjunctivitis, Bronchitis Discharge - Sign-Out/Discharge Documenting (check all that apply): Patient Departure All imaging exams completed and their final reports reviewed: Yes - HYPERINFLATION WHICH CAN BE ASSOCIATED WITH COPD OR REACTIVE AIRWAY DISEASE. - Discharge Plan Condition: Stable Disposition: HOME Prescriptions: Azithromycin TAB* [Zithromax TAB (Z-STARR) 250 mg #6 tabs] 2 tab PO .TODAY, THEN 1 DAILY #1 starr Ofloxacin 0.3% (Eye Drop) [Ocuflox OPTH 0.3% (Eye Drop)] 2 drop RIGHT EYE Q4H 5 Days #1 btl Patient Education Materials: Acute Bronchitis (ED), Conjunctivitis (ED) Forms: *Work Release Referrals: Wilmer Martinez MD [Primary Care Provider] - 3 Days (if no improvement) Additional Instructions: Drink plenty of fluids and rest no work today start medications and take as directed Use your inhalers everyday as prescribed - Billing Disposition and Condition Condition: STABLE Disposition: Home - Attestation Statements Provider Attestation: I was available for consult. This patient was seen by the PATRICA. The patient was not presented to , seen by or examined by ms -Josué Napoles MD
[2019-02-20] MEDS ORDERED: Albuterol/Ipratropium NEB.SOL* Albuterol 2.5 MG/Ipratropium 0.5 MG 3 ML INH ONE (09:50)
== END 2019-02-20 10:55 | disposition home or self-care (01) ==
LOC: UCEAST 08:57
DX: J40 Bronchitis, not specified as acute or chronic (principal); H10.9 Unspecified conjunctivitis; F41.9 Anxiety disorder, unspecified; F32.9 Major depressive disorder, single episode, unspecified; F90.9 Attention-deficit hyperactivity disorder, unspecified type; F17.210 Nicotine dependence, cigarettes, uncomplicated
CPT/HCPCS: 71046; 99212; A9270-GY; G0463

== ENCOUNTER 2020-12-30 20:22 | Inpatient (IN) ==
[2020-12-30 21:55] LABS: ABS Eosinophils 0.2 10^3/ul (0-0.6); ABS Lymphocytes 1.3 10^3/ul (1.0-4.8); ABS Monocytes 0.6 10^3/ul (0-0.8); ABS Neutrophils 3.8 10^3/ul (1.5-7.7); Eosinophil % 4.2 %; Hematocrit 34 % (35-47); Hemoglobin 11.5 g/dL (12.0-16.0); Mean Corpuscular HGB Conc 34 g/dL (31-36); Mean Corpuscular Hemoglobin 29 pg (27-31); Mean Corpuscular Volume 86 fL (80-97); Mean Platelet Volume 7.7 fL (7.4-10.4); Platelet Count 304 10^3/uL (150-450); Red Blood Count 3.97 10^6 /uL (3.70-4.87); Red Cell Distribution Width 16 % (10-15)
[2020-12-30 22:06] LABS: Urine Benzodiazepine Screen None Detected (None Detect); Urine Cannabinoids Screen Presumptive Positive (None Detect); Urine Opiates Screen None Detected (None Detect)
[2020-12-30 22:10] LABS: ALT 22 U/L (7-52); AST 24 U/L (13-39); Albumin 3.5 g/dL (3.2-5.2); Albumin/Globulin Ratio 0.9 (1-3); Alkaline Phosphatase 98 U/L (35-149); Anion Gap 7 mmol/L (2-11); Blood Urea Nitrogen 13 mg/dL (6-24); CO2 Carbon Dioxide 28 mmol/L (22-32); Calcium 9.3 mg/dL (8.6-10.3); Chloride 100 mmol/L (101-111); EGFR African American 130.9 (>60); EGFR Non-African American 108.2 (>60); Globulin 3.7 g/dL (2-4); Glucose 106 mg/dL (70-100); Potassium 2.9 mmol/L (3.5-5.0); Sodium 135 mmol/L (135-145); Total Protein 7.2 g/dL (6.4-8.9)
[2020-12-30 22:16] LABS: Acetaminophen < 15 mcg/mL; Alcohol, S < 10 mg/dL (<10); Salicylate < 2.50 mg/dL (<30)
[2020-12-30 22:31] LABS: TSH Ultra Thyroid Stim Horm 1.42 mcIU/mL (0.34-5.60)
[2020-12-31] MEDS ORDERED: Amoxicillin/Clavul 875/125 TAB (Augmentin 875 tab) PO ONE (00:19)
[2020-12-31] MEDS ORDERED: OLANzapine 5 mg TAB*ODT PO ONE (01:02)
[2020-12-31] MEDS ORDERED: Potassium EFFERVES 25 meq TAB PO ONE (01:35)
[2020-12-31] MEDS ORDERED: Al Hydrox/Mg Hydrox/Simet LIQ 30 ML UDC PO PRN (05:56)
[2020-12-31] MEDS ORDERED: Nicotine GUM 2MG FRUIT FLAVOR PO PRN (06:00)
[2020-12-31] MEDS ORDERED: Albuterol HFA INHALER 8 gm MDI INH PRN (12:58)
[2020-12-31] MEDS: Potassium Chlor 20 meq TAB.ER PO SCH (13:35)
[2020-12-31] MEDS: Vitamin THERAPEUTIC TAB PO SCH (13:38)
[2020-12-31] MEDS: Nicotine PATCH 21 MG/24 HR PATCH TRANSDERM SCH (13:39)
[2020-12-31] MEDS ORDERED: Nicotine PATCH 21 MG/24 HR PATCH ONE (17:45)
[2021-01-01] MEDS: Potassium Chlor 20 meq TAB.ER PO SCH (08:50)
[2021-01-01] MEDS: Vitamin THERAPEUTIC TAB PO SCH (08:50)
[2021-01-01] MEDS: Nicotine PATCH 21 MG/24 HR PATCH TRANSDERM SCH (08:50)
[2021-01-02] MEDS: Potassium Chlor 20 meq TAB.ER PO SCH (08:35)
[2021-01-02] MEDS: Vitamin THERAPEUTIC TAB PO SCH (08:35)
[2021-01-02] MEDS: Nicotine PATCH 21 MG/24 HR PATCH TRANSDERM SCH (08:36)
[2021-01-02 09:07] VITALS: BP 113/66
== END 2021-01-02 12:40 | disposition home or self-care (01) | DRG 773 ==
LOC: ED 20:22 → BSU 12-31
PROVIDERS: ADMIT Psychiatry & Neurology Psychiatry; ATTEND Psychiatry & Neurology Psychiatry